=== PATIENT | male | born 1970 | race Caucasian/White ===

== ENCOUNTER 2018-08-07 00:17 | Emergency (ER) | payer OTHER ==
[~2018-08-07] VITALS: Ht 167.6 cm; Wt 90.7 kg
[~2018-08-07 00:17] MED LIST: ASPIR 8181 MG PO; ATORVASTATIN CA40 M1 PO; CEPACOL LOZENGE 15 M MM; PRI20 PO; ZES10 PO; ZESTRIL5 MG
[2018-08-07 00:40] VITALS: Ht 167.6 cm; Wt 90.7 kg
[2018-08-07 02:42] VITALS: BP 145/45
== END 2018-08-07 02:42 | disposition home or self-care (01) ==
LOC: ED 00:17
DX: G44.209 Tension-type headache, unspecified, not intractable (principal)
CPT/HCPCS: J0780; J1885